=== PATIENT | male | born 1975 | race Caucasian/White ===

== ENCOUNTER 2017-08-05 08:45 | Emergency (ER) | payer BC ==
[~2017-08-05] VITALS: Ht 180.3 cm; Wt 98.9 kg
--- NOTE | ~2017-08-05 | EKG ---
[place] [address] [facility] [place] [address] ELECTROCARDIOGRAM REPORT Name: ALFONSO CRUZ [facility] [id number] Admission: 08/05/17 Attend Phys: Discharge: 08/05/17 Date of : 73 Report #: [id number] THIS REPORT FOR: //name// [facility] ED Test Date: 2017-08-05 Test Time: 08:48:58 Pat Name: ALFONSO CRUZ Department: Room: Gender: Automobiles Salesperson: ANCA : 1975 Requested By: Mega Tolentino Order Number: [id number] MD: Rigoberto Freire Measurements Intervals [place] Rate: 79 P: 20 IA: 141 QRS: -12 QRSD: 86 T: 37 QT: 376 QTc: 432 Interpretive Statements Sinus rhythm Low voltage, precordial leads Abnormal R-wave progression, early transition No previous ECG available for comparison Electronically Signed On 08-05-2017 13:01:00 CDT by Rigoberto Freire [email or web address] <ELECTRONICALLY SIGNED> By: Rigoberto Freire MD 08/05/17 1301 0848 7 Rigoberto Freire MD /RONAL
[2017-08-05 09:27] LABS: ABSOLUTE NEUTROPHILS 6.6 thou/uL (1.4-8.2); BASOPHILS 1.2 % (0.0-2.0); EOSINOPHILS 4.2 % (0.0-3.0); HEMOGLOBIN 15.3 gm/dL (14.0-18.0); LYMPHOCYTES 25.2 % (24.0-44.0); MCH 29.1 pg (26.0-34.0); MCHC 34.7 g/dL (28.0-37.0); MCV 83.6 fL (80.0-100.0); MONOCYTES 6.5 % (1.0-8.0); PLATELET COUNT 349 thou/uL (150-400); POLYS 62.9 % (36.0-66.0); RBC 5.26 mil/uL (4.50-6.00); RDW 12.9 % (10.5-14.5); WBC 10.5 thou/uL (4.0-11.0)
[2017-08-05 09:36] LABS: MANUAL DIFF NO
[2017-08-05 09:54] LABS: ANION GAP 8 mmol/L (7-16); BUN 8 mg/dL (7-18); CALCIUM 8.2 mg/dL (8.5-10.1); CHLORIDE 108 mmol/L (98-107); CO2 23 mmol/L (21-32); GLUCOSE 102 mg/dL (74-106); POTASSIUM 4.1 mmol/L (3.5-5.1); SODIUM 139 mmol/L (136-145)
[2017-08-05 10:02] LABS: ALBUMIN 3.3 g/dL (3.4-5.0); ALKALINE PHOSPHATASE 73 U/L (46-116); DIRECT BILIRUBIN < 0.1 mg/dL (<0.1-0.3); SGOT 34 U/L (15-37); SGPT 49 U/L (30-65); TOTAL BILIRUBIN 0.5 mg/dL (<0.1-1.0); TOTAL PROTEIN 6.5 g/dL (6.4-8.2); TROPONIN-I < 0.04 ng/mL (<0.04-0.07)
[2017-08-05] MEDS ORDERED: NORCO 5-325 TA1 EACH PO (12:21)
[2017-08-05 12:58] VITALS: BP 121/86
== END 2017-08-05 12:58 | disposition home or self-care (01) ==
LOC: ER 08:45
PROVIDERS: Nurse Practitioner
DX: M94.0 Chondrocostal junction syndrome [Tietze] (principal)